=== PATIENT | male | born 1995 | race African-American/Black ===

== ENCOUNTER 2016-05-07 21:57 | Emergency (ER) | payer OTHER ==
[~2016-05-07] VITALS: Ht 198.1 cm; Wt 136.1 kg
[2016-05-08 00:41] LABS: BASO % 0.3 % (0.0-1.0); EOS # 0.1 K/mm3 (0.0-0.50); EOS % 1.9 % (0.0-3.0); LARGE UNSTAINED CELL # 0.1 K/mm3 (0.0-0.4); LYMPH # 0.6 K/mm3 (1.5-6.5); LYMPH % 8.3 % (24.0-44.0); MEAN CORPUSCULAR HEMOGLOBIN 28.7 pg (27.0-33.0); MEAN CORPUSCULAR HGB CONC 32.5 g/dl (32.0-36.5); MEAN CORPUSCULAR VOLUME 88.3 fl (80.0-96.0); MONO # 0.4 K/mm3 (0.0-0.8); NEUTROPHILS # 5.9 K/mm3 (1.8-7.7); NEUTROPHILS % 82.6 % (36.0-66.0); PLATELET COUNT, AUTOMATED 203 k/mm3 (150-450); RED CELL DISTRIBUTION WIDTH 12.9 % (11.5-14.5); WHITE BLOOD COUNT 7.1 K/mm3 (4.0-10.0)
[2016-05-08] MEDS ORDERED: NS 1,000 ML IV ONE (01:00)
[2016-05-08 01:14] LABS: ALBUMIN 4.6 GM/DL (3.2-5.2); ALBUMIN/GLOBULIN RATIO 1.44 (1.00-1.93); ALKALINE PHOSPHATASE 72 U/L (45-117); ALT/SGPT 29 U/L (12-78); AMYLASE 42 U/L (25-115); ANION GAP 9 MEQ/L (8-16); AST/SGOT 16 U/L (15-37); BILIRUBIN,DIRECT 0.2 MG/DL (0.0-0.2); BILIRUBIN,TOTAL 0.8 MG/DL (0.2-1.0); BLOOD UREA NITROGEN 13 MG/DL (7-18); CALCIUM LEVEL 9.4 MG/DL (8.5-10.1); CARBON DIOXIDE LEVEL 28 MEQ/L (21-32); CHLORIDE LEVEL 105 MEQ/L (98-107); CREATININE FOR GFR 1.03 MG/DL (0.70-1.30); GLUCOSE, FASTING 102 MG/DL (70-105); POTASSIUM SERUM 3.7 MEQ/L (3.5-5.1); SODIUM LEVEL 142 MEQ/L (136-145); TOTAL PROTEIN 7.8 GM/DL (6.4-8.2)
[2016-05-08] MEDS ORDERED: BENT10CA PO (02:53)
[2016-05-08] MEDS ORDERED: DICYCLOMINE INJ 20MG/2ML (J0500) IM ONE (03:00)
[2016-05-08 03:34] VITALS: BP 156/74
[2016-05-12 00:06] LABS: TISSUE TRANSGLUTAMINASE IgG <2 U/mL (0-5)
== END 2016-05-08 03:46 | disposition home or self-care (01) ==
LOC: MERGE 23:29 → M ED 23:29
DX: K52.9 Noninfective gastroenteritis and colitis, unspecified (principal); J45.909 Unspecified asthma, uncomplicated; F17.200 Nicotine dependence, unspecified, uncomplicated
CPT/HCPCS: 80048; 80076; 82150; 83690; 85025; 86256; 96372; 99284; J0500

== ENCOUNTER → 2016-05-22 | Outpatient (CLI) | payer OTHER ==
[~2016-05-22] MED LIST: ALBU17IN INH; BENT10CA PO; ENTERO VU 24% w/v SUSP BTL 600ML As Ordered ONE; IBUP-1114 PO
--- NOTE | 2016-05-22 10:16 | REP ---
RIGHT UPPER QUADRANT ULTRASOUND: Real-time sonographic evaluation of the right upper quadrant is performed. The gallbladder demonstrates no evidence of intraluminal sludge or calculi, wall thickening or pericholecystic fluid. There is no intrahepatic or extrahepatic biliary dilatation, common bile duct measuring 3 mm in diameter. The liver and pancreas demonstrate homogeneous echotexture with no gross mass. The right kidney demonstrates no hydronephrosis or nephrolithiasis with normal size at 12.2 cm in length. A cyst in the mid right kidney measures 1.0 x 1.1 x 0.8 cm. IMPRESSION: Essentially negative right upper quadrant ultrasound. Small right renal cyst. Signed by Pete Griffin MD 05/22/2016 05:36 P
--- NOTE | 2016-05-22 16:29 | REP ---
Small follow-through study: History: Upper abdominal pain, nausea vomiting and diarrhea. Findings: Preliminary oil scout radiograph is normal. SI joints are unremarkable. The study includes oil scout view and four overhead radiographs. Serial films taken after ingestion of Enterovu demonstrate normal gastric folds. Duodenal bulb and C-loop are unremarkable. The ligament of Treitz is in a normal position and has a normal appearance. Jejunal folds and ileal folds are normal. No evidence of obstruction, hypersecretion, fold thickening or stricture. Terminal ileum is well seen and is unremarkable. Impression: No morphologic abnormality. Signed by Calvin Lorenzana MD 05/22/2016 06:36 P
== END ==
LOC: MERGE 05-20 09:30 → M RAD 08:48
PROVIDERS: ATTEND Physician Assistant Medical
DX: R19.7 Diarrhea, unspecified (principal); R10.9 Unspecified abdominal pain

== ENCOUNTER → 2016-05-29 | Outpatient (CLI) | payer OTHER ==
[~2016-05-29] VITALS: Ht 185.4 cm; Wt 136.1 kg
[~2016-05-29] MED LIST changes: -ENTERO VU 24% w/v SUSP BTL 600ML As Ordered ONE; +NS 1,000 ML IV SCH; +PROPOFOL 200 MG/20 ML VIAL As Ordered ONE
--- NOTE | 2016-05-29 14:28 | ROOR ---
Patient Name: Mitch Cruz Procedure Date: 05/29/2016 2:13 PM Date of : 1995 Age: 20 Room: [facility] Gender: Male Note Status: Finalized Procedure: Upper GI endoscopy Indications: Abdominal pain, Nausea with vomiting Providers: Reji ORANTES MD Referring MD: Tanvi Nguyen Md Requesting Provider: Medicines: Monitored Anesthesia Care Complications: No immediate complications. Procedure: Pre-Anesthesia Assessment: - The heart rate, respiratory rate, oxygen saturations, blood pressure, adequacy of pulmonary ventilation, and response to care were monitored throughout the procedure. The Endoscope was introduced through the mouth, and advanced to the second part of duodenum. The upper GI endoscopy was accomplished without difficulty. The patient tolerated the procedure well. Findings: The esophagus was normal. The stomach was normal. The examined duodenum was normal. Impression: - Normal esophagus. - Normal stomach. - Normal examined duodenum. - No specimens collected. Recommendation: - Continue present medications. - Observe patient's clinical course. Reji Orantes MD Reji ORANTES MD 05/29/2016 2:28:01 PM This report has been signed electronically. Number of Addenda: 0 Note Initiated On: 05/29/2016 2:13 PM Estimated Blood Loss: Estimated blood loss: none.
--- NOTE | 2016-05-29 14:39 | ROOR ---
Patient Name: Mitch Cruz Procedure Date: 05/29/2016 2:15 PM Date of : 1995 Age: 20 Room: OP02 Gender: Male Note Status: Finalized Procedure: Colonoscopy Indications: Generalized abdominal pain, Clinically significant diarrhea of unexplained origin, Exclusion of colitis, Suspected irritable bowel syndrome Providers: Reji ORANTES MD Referring MD: Tanvi Nguyen Md Requesting Provider: Medicines: Monitored Anesthesia Care Complications: No immediate complications. Procedure: Pre-Anesthesia Assessment: - The heart rate, respiratory rate, oxygen saturations, blood pressure, adequacy of pulmonary ventilation, and response to care were monitored throughout the procedure. The Colonoscope was introduced through the anus and advanced to 5 cm into the ileum. The colonoscopy was performed without difficulty. The patient tolerated the procedure well. The quality of the bowel preparation was good. Findings: The perianal and digital rectal examinations were normal. The terminal ileum appeared normal. The entire examined colon appeared normal on direct and retroflexion views. Impression: - The examined portion of the ileum was normal. - The entire examined colon is normal on direct and retroflexion views. - No specimens collected. - (Irritable Bowel Syndrome/IBS suspected.) Recommendation: - Use fiber, for example Citrucel, Fibercon, Konsyl or Metamucil. - Use Bentyl (dicyclomine) 20 mg PO TID 30 min AC. - (the script was sent to your pharmacy on file) Reji Orantes MD Reji ORANTES MD 05/29/2016 2:39:15 PM This report has been signed electronically. Number of Addenda: 0 Note Initiated On: 05/29/2016 2:15 PM Estimated Blood Loss: Estimated blood loss: none.
[2016-05-29 15:04] VITALS: BP 129/69
== END | disposition home or self-care (01) ==
LOC: M OPP 12:45
PROVIDERS: ATTEND Internal Medicine Gastroenterology
DX: R10.84 Generalized abdominal pain (principal); R19.7 Diarrhea, unspecified; R11.2 Nausea with vomiting, unspecified; R12 Heartburn; R63.4 Abnormal weight loss; R01.1 Cardiac murmur, unspecified; J45.909 Unspecified asthma, uncomplicated; F32.9 Major depressive disorder, single episode, unspecified; M19.011 Primary osteoarthritis, right shoulder; Z79.899 Other long term (current) drug therapy; Z80.8 Family history of malignant neoplasm of other organs or systems

== ENCOUNTER → 2016-07-27 | Outpatient (CLI) | payer OTHER ==
[~2016-07-27] MED LIST changes: -NS 1,000 ML IV SCH; -PROPOFOL 200 MG/20 ML VIAL As Ordered ONE
[2016-07-27 10:47] LABS: BASO % 0.6 % (0.0-1.0); EOS # 0.1 K/mm3 (0.0-0.50); EOS % 1.6 % (0.0-3.0); LARGE UNSTAINED CELL # 0.1 K/mm3 (0.0-0.4); LARGE UNSTAINED CELL % 1.9 % (0.0-4.0); LYMPH # 2.3 K/mm3 (1.5-6.5); LYMPH % 41.3 % (24.0-44.0); MEAN CORPUSCULAR HEMOGLOBIN 30.2 pg (27.0-33.0); MEAN CORPUSCULAR HGB CONC 33.6 g/dl (32.0-36.5); MEAN CORPUSCULAR VOLUME 90.1 fl (80.0-96.0); MONO # 0.4 K/mm3 (0.0-0.8); MONO % 6.7 % (0.0-5.0); NEUTROPHILS # 2.6 K/mm3 (1.8-7.7); NEUTROPHILS % 47.8 % (36.0-66.0); PLATELET COUNT, AUTOMATED 202 k/mm3 (150-450); RED CELL DISTRIBUTION WIDTH 13.3 % (11.5-14.5); WHITE BLOOD COUNT 5.5 K/mm3 (4.0-10.0)
[2016-07-27 11:32] LABS: ERYTHROCYTE SEDIMENTATION RATE 3 mm/hr (0-15)
[2016-07-27 16:54] LABS: ALBUMIN/GLOBULIN RATIO 1.25 (1.00-1.93); ALKALINE PHOSPHATASE 56 U/L (45-117); ALT/SGPT 21 U/L (12-78); ANION GAP 8 MEQ/L (8-16); AST/SGOT 13 U/L (15-37); BILIRUBIN,TOTAL 1.2 MG/DL (0.2-1.0); BLOOD UREA NITROGEN 9 MG/DL (7-18); CALCIUM LEVEL 8.9 MG/DL (8.5-10.1); CARBON DIOXIDE LEVEL 28 MEQ/L (21-32); CHLORIDE LEVEL 107 MEQ/L (98-107); CREATININE FOR GFR 1.01 MG/DL (0.70-1.30); FREE T4 1.27 NG/DL (0.78-1.33); GLUCOSE, FASTING 89 MG/DL (70-105); POTASSIUM SERUM 3.5 MEQ/L (3.5-5.1); SODIUM LEVEL 143 MEQ/L (136-145); TOTAL PROTEIN 7.2 GM/DL (6.4-8.2)
== END ==
LOC: M LAB 10:14
PROVIDERS: ATTEND Physician Assistant Medical
DX: R19.7 Diarrhea, unspecified (principal)

== ENCOUNTER → 2016-07-29 | Outpatient (REF) | payer OTHER | LOC: M LAB REF 09:04 | PROVIDERS: ATTEND Physician Assistant Medical | DX: R19.7 Diarrhea, unspecified (principal) ==

== ENCOUNTER → 2016-07-30 | Outpatient (CLI) | payer OTHER | LOC: M RAD 07:27 | PROVIDERS: ATTEND Physician Assistant Medical | DX: R10.13 Epigastric pain (principal); R11.2 Nausea with vomiting, unspecified; R68.81 Early satiety ==

== ENCOUNTER → 2016-10-08 | Outpatient (CLI) | payer MEDICAID | LOC: M OUTALCOH 08:15 | PROVIDERS: ATTEND Psychiatry & Neurology Psychiatry | DX: F12.20 Cannabis dependence, uncomplicated (principal) ==

== ENCOUNTER 2016-11-12 09:30 | Outpatient (RCR) | payer MEDICAID | END 2016-11-14 | LOC: M OUTALCOH 09:30 | PROVIDERS: ATTEND Psychiatry & Neurology Psychiatry | DX: F12.20 Cannabis dependence, uncomplicated (principal) ==

== ENCOUNTER 2016-12-18 13:05 | Outpatient (RCR) | payer MEDICAID | END 2017-01-14 | LOC: M OUTALCOH 13:05 | PROVIDERS: ATTEND Psychiatry & Neurology Psychiatry | DX: F12.20 Cannabis dependence, uncomplicated (principal) ==

== ENCOUNTER 2017-01-21 08:00 | Outpatient (RCR) | payer MEDICAID | END 2017-02-14 | LOC: M OUTALCOH 01-27 15:00 | DX: F12.20 Cannabis dependence, uncomplicated (principal) ==

== ENCOUNTER 2017-02-23 09:00 | Outpatient (RCR) | payer MEDICAID, OTHER | END 2017-03-17 | LOC: M OUTALCOH 02-24 15:00 | DX: F12.20 Cannabis dependence, uncomplicated (principal) ==

== ENCOUNTER 2017-03-19 11:01 | Outpatient (RCR) | payer MEDICAID | END 2017-04-14 | LOC: M OUTALCOH 11:01 | DX: F12.20 Cannabis dependence, uncomplicated (principal) | CPT/HCPCS: 90834 ==

== ENCOUNTER 2017-10-22 15:26 | Emergency (ER) | payer OTHER, MEDICAID ==
[2017-10-22 16:16] LABS: BASO # 0.1 10^3/uL (0.0-0.2); BASO % 0.7 % (0.0-1.0); EOS # 0.1 10^3/uL (0.0-0.50); EOS % 1.4 % (0.0-3.0); HEMATOCRIT 39.3 % (42.0-52.0); HEMOGLOBIN 13.4 g/dl (13.5-17.5); IMMATURE GRANULOCYTE % 0.3 % (0-3.0); LYMPH # 1.5 10^3/uL (1.5-6.5); LYMPH % 16.1 % (24.0-44.0); MEAN CORPUSCULAR HEMOGLOBIN 30.2 pg (27.0-33.0); MEAN CORPUSCULAR HGB CONC 34.1 g/dl (32.0-36.5); MEAN CORPUSCULAR VOLUME 88.5 fl (80.0-96.0); MONO # 0.8 10^3/uL (0.0-0.8); NEUTROPHILS # 6.6 10^3/uL (1.8-7.7); NEUTROPHILS % 72.5 % (36.0-66.0); PLATELET COUNT, AUTOMATED 172 10^3/uL (150-450); RED BLOOD COUNT 4.44 10^6/uL (4.30-6.10); RED CELL DISTRIBUTION WIDTH 13.2 % (11.5-14.5); WHITE BLOOD COUNT 9.1 10^3/uL (4.0-10.0)
[2017-10-22 16:34] LABS: ANION GAP 8 MEQ/L (8-16); BLOOD UREA NITROGEN 14 MG/DL (7-18); CALCIUM LEVEL 9.3 MG/DL (8.5-10.1); CARBON DIOXIDE LEVEL 28 MEQ/L (21-32); CHLORIDE LEVEL 106 MEQ/L (98-107); GLUCOSE, FASTING 94 MG/DL (70-100); POTASSIUM SERUM 3.6 MEQ/L (3.5-5.1); SODIUM LEVEL 142 MEQ/L (136-145)
[2017-10-22] MEDS: NS 1,000 ML IV (17:42)
[2017-10-22] MEDS: ONDANSETRON 4MG/2ML VIAL (J2405) IV (17:43)
== END 2017-10-22 19:23 | disposition home or self-care (01) ==
LOC: M ED 15:26
DX: F12.188 Cannabis abuse with other cannabis-induced disorder (principal); J45.909 Unspecified asthma, uncomplicated
CPT/HCPCS: J2405

== ENCOUNTER → 2017-11-24 | Outpatient (CLI) | payer OTHER ==
[~2017-11-24] MED LIST changes: -ALBU17IN INH; -BENT10CA PO; +GASTROGRAFIN SOLUTION 30ML (Q9963) As Ordered; -IBUP-1114 PO; +ISOVUE-370 76% 100ML VIAL (Q9967) As Ordered; +PROHANCE 279.3MG/ML 15ML VIAL (A9576) As Ordered
== END ==
LOC: M RAD 14:46
DX: R63.4 Abnormal weight loss (principal); R11.2 Nausea with vomiting, unspecified; R10.33 Periumbilical pain
CPT/HCPCS: Q9963

== ENCOUNTER → 2018-01-05 | Outpatient (CLI) | payer OTHER ==
[2018-01-05 10:24] LABS: BASO # 0.1 10^3/uL (0.0-0.2); BASO % 0.9 % (0.0-1.0); EOS # 0.3 10^3/uL (0.0-0.50); EOS % 4.6 % (0.0-3.0); HEMATOCRIT 41.8 % (42.0-52.0); HEMOGLOBIN 13.8 g/dl (13.5-17.5); IMMATURE GRANULOCYTE % 0.4 % (0-3.0); LYMPH # 2.2 10^3/uL (1.5-6.5); LYMPH % 40.7 % (24.0-44.0); MEAN CORPUSCULAR HEMOGLOBIN 29.8 pg (27.0-33.0); MEAN CORPUSCULAR VOLUME 90.3 fl (80.0-96.0); MONO # 0.4 10^3/uL (0.0-0.8); MONO % 7.7 % (0.0-5.0); NEUTROPHILS # 2.5 10^3/uL (1.8-7.7); NEUTROPHILS % 45.7 % (36.0-66.0); PLATELET COUNT, AUTOMATED 172 10^3/uL (150-450); RED BLOOD COUNT 4.63 10^6/uL (4.30-6.10); WHITE BLOOD COUNT 5.5 10^3/uL (4.0-10.0)
[2018-01-05 11:01] LABS: ALBUMIN/GLOBULIN RATIO 1.38 (1.00-1.93); ALKALINE PHOSPHATASE 53 U/L (45-117); ALT/SGPT 25 U/L (12-78); ANION GAP 3 MEQ/L (8-16); AST/SGOT 15 U/L (7-37); BILIRUBIN,TOTAL 0.9 MG/DL (0.2-1.0); BLOOD UREA NITROGEN 14 MG/DL (7-18); CALCIUM LEVEL 8.7 MG/DL (8.5-10.1); CARBON DIOXIDE LEVEL 30 MEQ/L (21-32); CHLORIDE LEVEL 106 MEQ/L (98-107); CREATININE FOR GFR 0.96 MG/DL (0.70-1.30); FREE T4 0.85 NG/DL (0.76-1.46); GLOMERULAR FILTRATION RATE > 60.0 (>60); GLUCOSE, FASTING 85 MG/DL (70-100); SODIUM LEVEL 139 MEQ/L (136-145); THYROID STIMULATING HORMONE 0.967 uIU/ML (0.358-3.740); TOTAL PROTEIN 6.9 GM/DL (6.4-8.2)
== END ==
LOC: M LAB 09:54
DX: R63.4 Abnormal weight loss (principal)
CPT/HCPCS: 84443

== ENCOUNTER 2018-06-07 14:48 | Day surgery (SDC) | payer OTHER, SELFPAY ==
[~2018-06-07] VITALS: Ht 198.1 cm; Wt 129.6 kg
[~2018-06-07 14:48] MED LIST changes: +ALBU17IN INH; +BENT10CA PO; -GASTROGRAFIN SOLUTION 30ML (Q9963) As Ordered; +IBUP-1114 PO; -ISOVUE-370 76% 100ML VIAL (Q9967) As Ordered; -PROHANCE 279.3MG/ML 15ML VIAL (A9576) As Ordered; +ZOFR4TAB14 PO
[2018-06-07] MEDS ORDERED: NS 1,000 ML IV SCH (15:17)
[2018-06-07] MEDS ORDERED: KETOROLAC 30 MG/ML VIAL (J1885) IV ONE (15:30)
[2018-06-07] MEDS ORDERED: PROPOFOL 200 MG/20 ML VIAL IV PRN (15:30)
--- NOTE | 2018-06-07 15:33 | REP ---
Right shoulder: Three views. History: Trauma. Comparison study: August 17, 2015. Findings: There is an anterior inferior glenohumeral dislocation. No glenoid or humeral fracture is visible. Prior images demonstrate evidence of a Hill-Sachs impaction fracture and previous anterior inferior glenohumeral dislocation of this joint. Impression: No acute fracture seen. Anterior inferior glenohumeral dislocation. This is a recurrent injury. Electronically Signed by Calvin Lorenzana MD 06/07/2018 08:46 P
[2018-06-07] MEDS ORDERED: MORPHINE 4 MG/ML 1ML VIAL/SYRINGE (J2270) As Ordered ONE (15:53)
[2018-06-07] MEDS: MORPHINE 4 MG/ML 1ML VIAL/SYRINGE (J2270) IV PRN ×2 (15:58→16:22)
[2018-06-07] MEDS ORDERED: ONDANSETRON 4MG/2ML VIAL (J2405) IV ONE (16:00)
[2018-06-07] MEDS ORDERED: PROPOFOL 200 MG/20 ML VIAL IV ONE ×2 (16:45→18:45)
[2018-06-07] MEDS ORDERED: MORPHINE 4 MG/ML 1ML VIAL/SYRINGE (J2270) IV ONE (16:45)
[2018-06-07] MEDS ORDERED: KETAMINE HCL 200 MG/20 ML VIAL IV ONE (17:00)
[2018-06-07] MEDS ORDERED: NS 1,000 ML IV ONE (18:00)
[2018-06-07] MEDS ORDERED: MIDAZOLAM INJ 2 MG/2 ML VIAL (J2250) As Ordered ONE (21:31)
[2018-06-07] MEDS ORDERED: dexameTHASONE 4 MG/ML 1ML VIAL (J1100) As Ordered ONE (21:31)
[2018-06-07] MEDS ORDERED: fentaNYL 100 MCG/2 ML INJECTION (J3010) As Ordered ONE (21:31)
[2018-06-07] MEDS ORDERED: LIDOCAINE 2% INJ 100 MG/5 ML SDV (FOR ANES.) As Ordered ONE (21:31)
[2018-06-07] MEDS ORDERED: ROCURONIUM BROMIDE 50 MG/5 ML VIAL As Ordered ONE (21:31)
[2018-06-07] MEDS ORDERED: PROPOFOL 200 MG/20 ML VIAL As Ordered ONE (21:31)
[2018-06-07] MEDS ORDERED: METOCLOPRAMIDE INJ 10MG/2ML VIAL (J2765) As Ordered ONE (21:31)
[2018-06-07] MEDS ORDERED: SUGAMMADEX SODIUM 500 MG/5 ML VIAL (BRIDION) As Ordered ONE (21:31)
[2018-06-07] MEDS ORDERED: ONDANSETRON 4MG/2ML VIAL (J2405) As Ordered ONE (21:31)
[2018-06-07] MEDS ORDERED: LR 1,000 ML IV SCH (22:15)
[2018-06-07] MEDS ORDERED: ONDANSETRON 4MG/2ML VIAL (J2405) IV PRN (22:15)
[2018-06-07] MEDS ORDERED: PERCOCET 5MG/325MG TAB PO PRN (22:15)
[2018-06-07] MEDS ORDERED: HYDROMORPHONE HCL 0.5 MG/ 0.5 ML SYRINGE (J1170 PER 1) IV PRN (22:15)
[2018-06-07] MEDS ORDERED: fentaNYL 100 MCG/2 ML INJECTION (J3010) IV PRN (22:15)
[2018-06-07 22:35] VITALS: BP 149/67
--- NOTE | 2018-06-08 08:20 | REP ---
Right shoulder: Single view. History: Status post reduction. Comparison study: June 07, 2018 at 03:05 p.m. Findings: A single AP view of the shoulder demonstrates normal alignment of the glenohumeral and acromioclavicular joints. No definite acute fracture is seen. There is a Hill-Sachs impaction fracture deformity in the superolateral aspect of the humeral head but this appears to be old based on prior radiographs. Electronically Signed by Calvin Lorenzana MD 06/08/2018 08:12 A
--- NOTE | 2018-06-08 08:29 | REP ---
Right shoulder: Five views. History: Shoulder reduction. Comparison radiographs show a glenohumeral dislocation. 6 seconds of fluoroscopy time is reported. Findings: A sequence of five last image hold fluoroscopically obtained spot radiographs of the shoulder document glenohumeral joint reduction. There is a old appearing Hill-Sachs impaction fracture deformity. No glenoid fracture is visible. Electronically Signed by Calvin Lorenzana MD 06/08/2018 08:20 A
--- NOTE | 2018-06-08 09:30 | CR ---
DATE OF CONSULTATION: 06/07/2018 INDICATION: Right shoulder dislocation. 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 He underwent an arthroscopic Bankart repair about [address] José Miguel Davis, and he had not had any recurrent instability episodes. The patient does inform me about a month ago he started developing some tightness, a catching sensation in the shoulder and then he had the dislocation today when he basically reached up overhead and just stretched. The emergency room (ER) team including two skilled ER physicians attempted closed reductions with two separate rounds of sedation yet were unable to obtain a successful closed reduction, which they felt was due to inadequate muscle relaxation. PAST MEDICAL HISTORY: Noncontributory. PAST SURGICAL HISTORY: As above. MEDICATIONS: None. ALLERGIES: NO KNOWN DRUG ALLERGIES. 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 Does not smoke, abuse alcohol or illicit drugs. REVIEW OF SYSTEMS: The patient denies neurologic, cardiac, pulmonary, abdominal symptoms. Musculoskeletal as above. PHYSICAL EXAMINATION: Reveals a young man, in no distress. He is alert and times three. Neurologic: Appropriate mood, pleasant affect. Abdomen is soft, nontender, nondistended. Cardiovascular: He has a 2+ radial pulse. Pulmonary: Nonlabored breathing. Musculoskeletal: There is a deformity at the right shoulder consistent with an anterior shoulder dislocation. Shoulder range of motion deferred. He is nontender at the elbow. He fires EPL, FPL, and IO. Sensation to light touch is intact including the axillary nerve distribution. X-rays of the right shoulder from the ER today reveal an anterior dislocation. No obvious fractures. ASSESSMENT AND PLAN: Mitch is a 22-year-old gentleman with recurrent right shoulder anterior instability with already an unsuccessful closed reduction attempt in the emergency room by the ER physicians. The patient will need to be brought to the operating room for repeat closed reduction attempts and will attempt to have anesthesia do this with paralysis. Once we have a successful closed reduction he will be in a sling, then we will get him into some therapy after 3 weeks and if he has any additional instability episodes will then need an MRI arthrogram. All this was explained to the patient and he expresses understanding. The risks and benefits of a closed reduction of the right shoulder were discussed with the patient and these include but are not limited to fracture, inability to obtain a successful closed reduction, loss of reduction, failure to alleviate pain and need for additional surgery. Written informed consent was obtained. Will be preceding to the operating room (OR) soon as a room is available.
--- NOTE | 2018-06-08 16:29 | RO ---
DATE OF PROCEDURE: 06/07/2018 PREOPERATIVE DIAGNOSIS: Right anterior shoulder dislocation. POSTOPERATIVE DIAGNOSIS: 1. Right anterior shoulder dislocation. 2. Right shoulder Hill-Sachs lesion. PROCEDURE: Right shoulder closed reduction. SURGEON: Clive Aguirre MD FOOD SERVICE ORDER CLERK: ANESTHESIA: General. INTRAVENOUS (IV) FLUIDS: Lactated Ringer's. ESTIMATED BLOOD LOSS: Zero. COMPLICATIONS: None. DESCRIPTION OF PROCEDURE: Patient was identified in the preoperative holding area. The right shoulder was marked by myself. He had an intact axillary musculocutaneous sensation to light touch. He was brought to the operating room, placed supine on a well-padded operating room (OR) table. All bony prominences well padded. General anesthesia was induced. No IV antibiotics indicated. Time-out was then performed per hospital protocol. I obtained a provisional AP C-arm image, which again demonstrated a pretty much straight anterior glenohumeral dislocation. I then applied longitudinal traction with some forward flexion, followed by an anterior to posterior vector with my opposite hand. I then felt a clunk as the joint was reduced. With the shoulder at his side, I then took the arm through internal and external rotation. There was no residual dislocation. He did have a grade 3 anterior load and shift test. I then obtained a postreduction AP C-arm image, which showed a successful closed reduction. C-arm images were taken in internal rotation, neutral and external rotation showing a very large Hill-Sachs. The patient was then placed into a shoulder immobilizer. He was then extubated, transferred to postanesthesia care unit (PACU) in stable condition. He will be in a sling. He will followup in the office. Plan will be to get an MRI arthrogram return and to discuss therapy versus surgery.
== END 2018-06-07 22:50 | disposition home or self-care (01) ==
LOC: M ED 14:48 → M SDC 19:29
PROVIDERS: ATTEND Orthopaedic Surgery
DX: M24.411 Recurrent dislocation, right shoulder (principal); M75.91 Shoulder lesion, unspecified, right shoulder
CPT/HCPCS: 23655; 73020; 73030; 76000; 93041; 94760; 96361; 96374; 96375; 96376; 99285; J1100; J1885; J2250; J2270; J2405; J2765; J3010

== ENCOUNTER 2021-12-09 12:18 | Emergency (ER) | payer OTHER ==
[~2021-12-09] VITALS: Ht 198.1 cm; Wt 127.3 kg
[2021-12-09] MEDS ORDERED: MORPHINE 4 MG/ML 1ML VIAL/SYRINGE IV ONE (14:05)
[2021-12-09] MEDS ORDERED: propofoL 200 MG/20 ML VIAL IV.PROC PRN (14:45)
[2021-12-09] MEDS ORDERED: NS 1,000 ML IV SCH (14:45)
[2021-12-09] MEDS ORDERED: fentaNYL 100 MCG/2 ML INJECTION IV ONE ×2 (14:45→15:45)
[2021-12-09 16:41] VITALS: BP 148/65
== END 2021-12-09 17:00 | disposition home or self-care (01) ==
LOC: M ED 12:18
DX: S43.004A Unspecified dislocation of right shoulder joint, initial encounter (principal); X50.0XXA Overexertion from strenuous movement or load, initial encounter; M24.411 Recurrent dislocation, right shoulder; J45.909 Unspecified asthma, uncomplicated; F32.9 Major depressive disorder, single episode, unspecified
CPT/HCPCS: 23650; 73020; 73030; 93041; 94760; 96361; 96374; 99285; J2270; J3010

== ENCOUNTER → 2021-12-10 | Outpatient (CLI) | payer OTHER | LOC: M SOG 11:24 | PROVIDERS: ATTEND Orthopaedic Surgery | DX: S43.001A Unspecified subluxation of right shoulder joint, initial encounter (principal); X58.XXXA Exposure to other specified factors, initial encounter; Y92.9 Unspecified place or not applicable; Y93.9 Activity, unspecified; Y99.9 Unspecified external cause status ==

== ENCOUNTER → 2022-12-28 | Outpatient (REF) | payer SELFPAY ==
[2022-12-28 18:47] LABS: BASO # 0.1 10^3/uL (0.0-0.2); BASO % 1.1 % (0.0-1.0); EOS # 0.5 10^3/uL (0.0-0.5); EOS % 6.3 % (0.0-3.0); HEMOGLOBIN 15.1 g/dl (13.5-17.5); LYMPH # 2.7 10^3/uL (1.5-5.0); LYMPH % 37.7 % (24.0-44.0); MEAN CORPUSCULAR HEMOGLOBIN 30.1 pg (27.0-33.0); MEAN CORPUSCULAR HGB CONC 32.8 g/dl (32.0-36.5); MEAN CORPUSCULAR VOLUME 91.6 fl (80.0-96.0); MONO # 0.6 10^3/uL (0.0-0.8); MONO % 8.1 % (2.0-8.0); NEUTROPHILS # 3.4 10^3/uL (1.5-8.5); NEUTROPHILS % 46.5 % (36.0-66.0); PLATELET COUNT, AUTOMATED 208 10^3/uL (150-450); RED BLOOD COUNT 5.02 10^6/uL (4.30-6.10); WHITE BLOOD COUNT 7.3 10^3/uL (4.0-10.0)
[2022-12-28 18:53] LABS: ALBUMIN 4.1 G/DL (3.2-5.2); ALKALINE PHOSPHATASE 56 U/L (46-116); ALT/SGPT 15 U/L (7.0-40); AST/SGOT 14 U/L (<34); BILIRUBIN,TOTAL 0.8 MG/DL (0.3-1.2); BLOOD UREA NITROGEN 12 MG/DL (9-23); CARBON DIOXIDE LEVEL 28 MMOL/L (20-31); CHLORIDE LEVEL 107 MMOL/L (98-107); CHOLESTEROL LEVEL 176 MG/DL (<200); CHOLESTEROL RISK RATIO 4.32 (<5); CREATININE FOR GFR 0.99 MG/DL (0.70-1.30); GLOMERULAR FILTRATION RATE > 60.0 (>60); GLUCOSE, FASTING 87 MG/DL (60-100); HDL CHOLESTEROL 40.7 MG/DL (>40); LDL CHOLESTEROL 109.1 MG/DL (<100); NON-HDL-C 135.3 MG/DL; POTASSIUM SERUM 4.5 MMOL/L (3.5-5.1); SODIUM LEVEL 144 MMOL/L (136-145); THYROID STIMULATING HORMONE 0.693 uIU/ML (0.55-4.78); TOTAL 25(OH) VITAMIN D 19.6 NG/ML (20.0-100.0); TOTAL PROTEIN 6.9 G/DL (5.7-8.2); TRIGLYCERIDES LEVEL 131 MG/DL (<150)
[2022-12-28 19:12] LABS: HEMOGLOBIN A1c 5.3 % (4.0-6.0)
== END ==
LOC: M LAB REF 16:45
PROVIDERS: ATTEND Nurse Practitioner Family
DX: E66.3 Overweight (principal); R53.83 Other fatigue; E55.9 Vitamin D deficiency, unspecified; Z11.9 Encounter for screening for infectious and parasitic diseases, unspecified

== ENCOUNTER 2023-11-18 10:14 | Emergency (ER) | payer OTHER, SELFPAY ==
[~2023-11-18] VITALS: Ht 198.1 cm; Wt 136.4 kg
[2023-11-18 11:29] LABS: ALBUMIN 4.3 G/DL (3.2-5.2); BILIRUBIN,DIRECT 0.3 MG/DL (<0.4); BILIRUBIN,TOTAL 1.1 MG/DL (0.3-1.2); TOTAL PROTEIN 7.2 G/DL (5.7-8.2)
[2023-11-18] MEDS: MORPHINE 2 MG/ML 1ML VIAL IV ONE ×2 (11:37→13:13)
[2023-11-18] MEDS: NS 1,000 ML IV ONE ×2 (11:37→13:11)
[2023-11-18] MEDS ORDERED: ISOVUE-370 76% 100ML VIAL As Ordered ONE (11:43)
[2023-11-18 12:05] LABS: BASO # 0.1 10^3/uL (0.0-0.2); BASO % 0.4 % (0.0-1.0); EOS # 0.1 10^3/uL (0.0-0.5); EOS % 1.2 % (0.0-3.0); HEMATOCRIT 47.4 % (42.0-52.0); HEMOGLOBIN 15.7 g/dl (13.5-17.5); LYMPH # 1.2 10^3/uL (1.5-5.0); LYMPH % 10.5 % (24.0-44.0); MEAN CORPUSCULAR HEMOGLOBIN 30.4 pg (27.0-33.0); MEAN CORPUSCULAR HGB CONC 33.1 g/dl (32.0-36.5); MEAN CORPUSCULAR VOLUME 91.7 fl (80.0-96.0); MONO # 0.9 10^3/uL (0.0-0.8); MONO % 8.1 % (2.0-8.0); NEUTROPHILS % 79.4 % (36.0-66.0); PLATELET COUNT, AUTOMATED 207 10^3/uL (150-450); RED BLOOD COUNT 5.17 10^6/uL (4.30-6.10); WHITE BLOOD COUNT 11.3 10^3/uL (4.0-10.0)
[2023-11-18 12:31] LABS: LIPASE 26 U/L (12-53)
[2023-11-18 12:32] LABS: AMYLASE 65 U/L (30-118)
[2023-11-18 12:33] LABS: BLOOD UREA NITROGEN 14 MG/DL (9-23); CALCIUM LEVEL 9.6 MG/DL (8.5-10.1); CARBON DIOXIDE LEVEL 28 MMOL/L (20-31); CHLORIDE LEVEL 106 MMOL/L (98-107); CREATININE FOR GFR 1.29 MG/DL (0.70-1.30); GLOMERULAR FILTRATION RATE > 60.0 (>60); GLUCOSE, FASTING 101 MG/DL (60-100); MAGNESIUM LEVEL 1.7 MG/DL (1.8-2.4); POTASSIUM SERUM 3.8 MMOL/L (3.5-5.1); SODIUM LEVEL 141 MMOL/L (136-145)
[2023-11-18] MEDS ORDERED: KETOROLAC 30 MG/ML 1ML VIAL IV ONE (12:40)
[2023-11-18] MEDS ORDERED: FLOM0.4C39 PO (13:03)
[2023-11-18] MEDS ORDERED: CIPR-249 PO (13:03)
[2023-11-18] MEDS ORDERED: KETO10TAB PO (13:03)
[2023-11-18] MEDS: TAMSULOSIN 0.4 MG CAP PO ONE (13:10)
[2023-11-18] MEDS: MAGNESIUM OXIDE 400MG TAB (MAG-OX) PO ONE (13:10)
[2023-11-18] MEDS: cefTRIAXone SOD 1 GM in D5W MINI-BAG PLUS 50 ML IV ONE (13:11)
[2023-11-18] MEDS: KETOROLAC 30 MG/ML 1ML VIAL IV ONE (13:11)
[2023-11-18 15:54] VITALS: BP 180/95; O2SAT 100
[2023-11-18] MEDS: ACETAMINOPHEN *IV* 1,000 MG in IV 1 EA IV ONE (15:54)
[2023-11-18] MEDS: ONDANSETRON 4MG 2ML VIAL IV ONE (15:54)
[2023-11-18] MEDS ORDERED: ONDA-282 PO (16:38)
[2023-11-18 16:43] VITALS: TEMP 100.2
== END 2023-11-18 16:50 | disposition home or self-care (01) ==
LOC: M ED 10:14 → EDBD 10:14 → M ED 16:50
DX: N10 Acute pyelonephritis (principal); N20.1 Calculus of ureter; J45.909 Unspecified asthma, uncomplicated; F32.A Depression, unspecified; F12.10 Cannabis abuse, uncomplicated; Z79.2 Long term (current) use of antibiotics; Z79.899 Other long term (current) drug therapy
CPT/HCPCS: 74177; 80047; 80048; 80076; 81000; 81015; 82150; 83605; 83690; 83735; 85025; 96361; 96365; 96374; 96375; 99284; J0131; J0696; J1885; J2405; Q9967

== ENCOUNTER → 2024-04-14 | Outpatient (REF) | payer OTHER ==
[~2024-04-14] MED LIST changes: +CIPR-249 PO; +FLOM0.4C39 PO; +KETO10TAB PO; +ONDA-282 PO
[2024-04-14 14:27] LABS: BASO # 0.1 10^3/uL (0.0-0.2); EOS # 0.2 10^3/uL (0.0-0.5); EOS % 3.9 % (0.0-3.0); HEMATOCRIT 44.9 % (42.0-52.0); HEMOGLOBIN 14.4 g/dl (13.5-17.5); LYMPH # 2.4 10^3/uL (1.5-5.0); LYMPH % 39.1 % (24.0-44.0); MEAN CORPUSCULAR HEMOGLOBIN 29.2 pg (27.0-33.0); MEAN CORPUSCULAR HGB CONC 32.1 g/dl (32.0-36.5); MEAN CORPUSCULAR VOLUME 91.1 fl (80.0-96.0); MONO # 0.6 10^3/uL (0.0-0.8); NEUTROPHILS # 2.8 10^3/uL (1.5-8.5); NEUTROPHILS % 45.8 % (36.0-66.0); PLATELET COUNT, AUTOMATED 219 10^3/uL (150-450); RED BLOOD COUNT 4.93 10^6/uL (4.30-6.10); WHITE BLOOD COUNT 6.1 10^3/uL (4.0-10.0)
[2024-04-14 14:36] LABS: ALBUMIN 4.1 G/DL (3.2-5.2); ALKALINE PHOSPHATASE 60 U/L (40-129); ALT/SGPT 45 U/L (7.0-40); AST/SGOT 132 U/L (<34); BILIRUBIN,TOTAL 1.5 MG/DL (0.3-1.2); BLOOD UREA NITROGEN 13 MG/DL (9-23); CALCIUM LEVEL 8.9 MG/DL (8.5-10.1); CARBON DIOXIDE LEVEL 28 MMOL/L (20-31); CHLORIDE LEVEL 107 MMOL/L (98-107); CHOLESTEROL LEVEL 187 MG/DL (<200); CHOLESTEROL RISK RATIO 4.96 (<5); CREATININE FOR GFR 1.14 MG/DL (0.70-1.30); GLOMERULAR FILTRATION RATE > 60.0 (>60); GLUCOSE, FASTING 86 MG/DL (60-100); HDL CHOLESTEROL 37.7 MG/DL (>40); LDL CHOLESTEROL 135.1 MG/DL (<100); NON-HDL-C 149.3 MG/DL; POTASSIUM SERUM 4.2 MMOL/L (3.5-5.1); SODIUM LEVEL 145 MMOL/L (136-145); TRIGLYCERIDES LEVEL 71 MG/DL (<150)
[2024-04-14 14:39] LABS: THYROID STIMULATING HORMONE 0.323 uIU/ML (0.55-4.78)
[2024-04-14 14:52] LABS: HEMOGLOBIN A1c 5.3 % (4.0-6.0)
== END ==
LOC: M LAB REF 12:57
PROVIDERS: ATTEND Nurse Practitioner Family
DX: J45.40 Moderate persistent asthma, uncomplicated (principal); E78.6 Lipoprotein deficiency; E66.9 Obesity, unspecified

== ENCOUNTER → 2024-05-19 | Outpatient (REF) | payer OTHER ==
[2024-05-19 18:23] LABS: APPEARANCE, URINE TURBID (CLEAR); BACTERIA, URINE AUTO NEGATIVE (NEGATIVE); BILIRUBIN, URINE AUTO NEGATIVE (NEGATIVE); BLOOD, URINE BLOOD 1+ (NEGATIVE); COLOR, URINE YELLOW (YELLOW); GLUCOSE, URINE (UA) AUTO NEGATIVE (NEGATIVE); KETONE, URINE AUTO NEGATIVE (NEGATIVE); LEUKOCYTE ESTERASE, URINE AUTO NEGATIVE (NEGATIVE); NITRITE, URINE AUTO NEGATIVE (NEGATIVE); PROTEIN, URINE AUTO NEGATIVE (NEGATIVE); RBC, URINE AUTO 0 /HPF (0-3); SPECIFIC GRAVITY URINE AUTO 1.031 (1.002-1.035); SQUAMOUS EPITHELIAL CELL UR AU 0 /HPF (0-6); UROBILINOGEN, URINE AUTO 0.2 mg/dL (0.0-2.0); WBC, URINE AUTO 0 /HPF (0-3)
[2024-05-19 18:59] LABS: Trichomonas vaginalis (AMP) NOT DETECTED (NEGATIVE)
[2024-05-19 19:23] LABS: GC DNA AMPLIFICATION NEGATIVE (NEGATIVE)
== END ==
LOC: M LAB REF 17:18
PROVIDERS: ATTEND Nurse Practitioner Family
DX: N48.89 Other specified disorders of penis (principal)

== ENCOUNTER → 2024-05-26 | Outpatient (REF) | payer OTHER ==
[~2024-05-26] MED LIST changes: -FLOM0.4C39 PO; +TAMS-18 PO
[2024-05-26 17:19] LABS: BASO # 0.1 10^3/uL (0.0-0.2); BASO % 0.8 % (0.0-1.0); EOS # 0.3 10^3/uL (0.0-0.5); EOS % 3.6 % (0.0-3.0); HEMATOCRIT 47.1 % (42.0-52.0); HEMOGLOBIN 15.5 g/dl (13.5-17.5); LYMPH # 2.5 10^3/uL (1.5-5.0); MEAN CORPUSCULAR HEMOGLOBIN 29.7 pg (27.0-33.0); MEAN CORPUSCULAR HGB CONC 32.9 g/dl (32.0-36.5); MEAN CORPUSCULAR VOLUME 90.2 fl (80.0-96.0); MONO # 0.8 10^3/uL (0.0-0.8); MONO % 11.3 % (2.0-8.0); NEUTROPHILS # 3.7 10^3/uL (1.5-8.5); NEUTROPHILS % 50.2 % (36.0-66.0); PLATELET COUNT, AUTOMATED 237 10^3/uL (150-450); RED BLOOD COUNT 5.22 10^6/uL (4.30-6.10); WHITE BLOOD COUNT 7.3 10^3/uL (4.0-10.0)
[2024-05-26 17:25] LABS: THYROID STIMULATING HORMONE 0.309 uIU/ML (0.55-4.78)
[2024-05-26 17:27] LABS: ALBUMIN 4.3 G/DL (3.2-5.2); BILIRUBIN,DIRECT 0.4 MG/DL (<0.4); BILIRUBIN,TOTAL 1.4 MG/DL (0.3-1.2); TOTAL PROTEIN 7.4 G/DL (5.7-8.2)
[2024-05-29 12:57] LABS: PSA FREE 0.3 ng/mL; PSA TOTAL 0.7 ng/mL (< OR = 4.0)
== END ==
LOC: M LAB REF 16:34
PROVIDERS: ATTEND Nurse Practitioner Family
DX: R20.2 Paresthesia of skin (principal); N48.89 Other specified disorders of penis; R94.6 Abnormal results of thyroid function studies; R74.01 Elevation of levels of liver transaminase levels